=== PATIENT | male | born 1940 | race Caucasian/White ===

== ENCOUNTER 2022-12-04 09:15 | Outpatient (CLI) | payer MEDICARE, SELFPAY ==
--- NOTE | 2022-12-06 14:33 | WPDSLEEPSTUD ---
Sleep Study Date of Study: 12/04/22 Ordering Provider: Ihsan Crowe MD Interpreting Physician: Tasia Gloria MD Sleep Study Type: CPAP Titration Height: 1.88 m Weight: 119.295 kg Body Mass Index: 33.7 Neck Circumference (inches): 16.75 [place]: 2 Reason for Sleep Study obstructive sleep apnea, currently on APAP, elevated apnea-hypopnea index 15.5; he presents for a new titration Sleep History Jh Husain is a 82-year-old man with history of obstructive sleep apnea diagnosed in 2007 on CPAP who presents for a titration due to a high residual number of events despite using APAP 12-20 cm water pressure. His residual AHI is 15.5. He frequently awakens from sleep short of breath. He rarely wakes during the night with heartburn, belching or cough.??He frequently snores, occasionally snores loudly enough that others complain. He occasionally has trouble sleeping when he has a cold. He rarely wakes up gasping for breath during the night. He rarely has breathing problems at night. He never sweats excessively at night. He rarely notices his heart pounding or beating irregularly during the night. He frequently falls asleep during the day. He occasionally falls asleep involuntarily and never falls asleep while driving. He never experiences loss of muscle tone with strong emotion. He never feels paralyzed on waking or falling asleep. He never experiences vivid dreams upon waking or falling asleep. He never feels afraid of going to sleep. He rarely has nightmares. He rarely recalls his dreams. He rarely has thoughts racing through his mind. He rarely feels sad or depressed. He occasionally feels anxiety or worry about things. He occasionally notices parts of his body jerk. He occasionally kicks during the night. He rarely feels crawling or aching feelings in his legs. He rarely feels leg pain at night. He never grinds his teeth and never has morning jaw pain. He occasionally feels bothered by pain during the day and is rarely awakened by pain during the night. He occasionally wakes up feeling stiff, sore, and achy in the morning, rarely wakes with pain in his neck, spine, or joints. Normal bedtime is around 10:00 p.m. usually falling asleep sometime sooner than other times. He typically gets about 8+ hours of sleep per night. His wake up time is 8:30 a.m.. He has the same schedule on weekends. He typically wakes twice during the night to go to the bathroom. Habits:??Tobacco: former smoker Caffeine:unknown. Alcohol:currently uses PMH: hypertension, hypothyroidism, coronary artery disease status post CABG, AAA status post endovascular stent x2 in 2019, atrial fibrillation, [facility] Past Medical History Medical History (Updated 12/06/22 @ 15:28 by Tasia Gloria MD) Atrial fibrillation Essential hypertension Hypothyroidism (acquired) 04/30/2021 Obstructive sleep apnea Family History Family History Unknown Heart disease Hypertension Kidney disorder Sibling Dementia Social History Social History (Updated 11/27/22 @ 15:13 by Kathy Benoit MA) Smoking status: Former smoker Tobacco type: cigarettes Smoking end date: 11/04/73 Alcohol intake: current Medications Home Medications Medication Instructions Recorded Confirmed Type atorvastatin 80 mg tablet 80 mg PO DAILY 10/17/22 11/27/22 History calcitriol 0.25 mcg capsule 0.25 mcg PO 3XW 10/17/22 11/27/22 History carvedilol 12.5 mg tablet 12.5 mg PO Q12H 10/17/22 11/27/22 History chlorthalidone 25 mg tablet 25 mg PO DAILY 10/17/22 11/27/22 History citalopram 20 mg tablet 20 mg PO DAILY 10/17/22 11/27/22 History lorazepam 0.5 mg tablet 0.5 mg PO TID PRN 10/17/22 11/27/22 History losartan 50 mg tablet 50 mg PO BID 10/17/22 11/27/22 History nitroglycerin 0.4 mg sublingual 0.4 mg sublingual Q5M PRN 10/17/22 11/27/22 History tablet warfarin 2.5 mg tablet 2.5 mg PO 4XW 10/17/22 0
[2022-12-06 15:29] VITALS: BMI 33.7
== END 2022-12-05 07:55 | disposition home or self-care (01) ==
LOC: ANHCSM 09:16
PROVIDERS: PCP Internal Medicine; Visit Provider Internal Medicine Pulmonary Disease
DX: G47.33 Obstructive sleep apnea (adult) (pediatric) (principal); I49.3 Ventricular premature depolarization
CPT/HCPCS: 95811

== ENCOUNTER 2023-01-22 09:52 | Outpatient (CLI) | payer MEDICARE, SELFPAY ==
[2023-01-22 10:30] VITALS: PULSE 61; O2SAT 94
[2023-01-22 10:35] VITALS: PULSE 87; O2SAT 88
[2023-01-22 10:40] VITALS: PULSE 87; O2SAT 91
[2023-01-22 10:50] VITALS: PULSE 68; O2SAT 94
--- NOTE | 2023-01-22 11:45 | HOMEO2EVAL ---
Evaluation was performed at [facility] Home Oxygen Evaluation RC: Home Oxygen (O2) Evaluation Start: 01/22/23 11:42 Freq: Status: Active Protocol: RPE Activity Type Activity Date Activity User E-sign Co-sign Detail Recorded Client Recorded Date Recorded By Document 01/22/23 10:30 PK RT_012 01/22/23 11:45 PK Document 01/22/23 10:35 PK RT_012 01/22/23 11:45 PK Document 01/22/23 10:40 [facility] [id number] 01/22/23 11:45 [facility] Document 01/22/23 10:50 [facility] [id number] 01/22/23 11:45 [facility] 01/22/23 01/22/23 01/22/23 10:30 10:35 10:40 Home O2 Evaluation [Oxygen] -Test Phase Resting Exercise Exercise -Oxygen Delivery Room Air Room Air Nasal Cannula -Oxygen Flow Rate (L/min) 1 [Pulse Oximetry] -Pulse Oximetry (90-100 %) 94 88 L 91 [Pulse Rate] -Pulse Rate (60-100 beats/min) 61 87 87 [Charges] -Treatment Charges O2 Evaluation - Outpatient 01/22/23 10:50 Home O2 Evaluation [Oxygen] -Test Phase Resting -Oxygen Delivery Room Air -Oxygen Flow Rate (L/min) [Pulse Oximetry] -Pulse Oximetry (90-100 %) 94 [Pulse Rate] -Pulse Rate (60-100 beats/min) 68 [Charges] -Treatment Charges
--- NOTE | 2023-01-22 13:48 | WPDPFTINT ---
PFT Procedure Performed PFT Procedure Performed Spirometry with Pre/Post Bronchodilator Plethysmography (Lung Vol) Diffusing Cap (DLCO) Flow Vol Loop PFT Interpretation This is a pulmonary function test with pre and post-bronchodilator spirometry, plethysmography and diffusing capacity. The test was performed and results interpreted in accordance with the 2019 and 2005 ATS/ERS Task Force guidelines respectively using the Global Lung Function Initiative-2012 reference equations. Patient demonstrated good effort and cooperation. Reproducibility criteria were met. The quality of the pre bronchodilator spirometry maneuver was Grade A and post bronchodilator spirometry maneuver was Grade A. Findings: Spirometry: The contour the inspiratory and expiratory flow tracing are normal. The pre bronchodilator FVC is 2.83 L, 66% predicted. The pre bronchodilator FEV1 is 2.30 L, 74% predicted. The pre bronchodilator FEV1: FVC ratio is 81%. The post bronchodilator FVC is 2.73 L, representing a 3% decrease. The post bronchodilator FEV1 is 2.36 L, representing a 3% increase. The post bronchodilator FEV1: FVC ratio was 86%. Plethysmography: The total lung capacity is 5.46 L, 69% predicted. The functional residual capacity is 2.99 L, 69% predicted. The residual volume is 2.44 L, 83% predicted. Diffusing capacity: The diffusing capacity unadjusted for hemoglobin and carboxyhemoglobin is 11.8, 48% predicted. The diffusing capacity adjusted for alveolar volume is 2.66, 81% predicted. Impression: There is a mild restrictive ventilatory abnormality with a normal FEV1. The spirometry is normal without evidence of an obstructive abnormality. There is no significant improvement after inhaling a single dose of albuterol. The diffusing capacity unadjusted for hemoglobin and carboxyhemoglobin is moderately decreased and normalizes when adjusted for alveolar volume. There are no prior studies for comparison
== END 2023-01-22 09:53 | disposition home or self-care (01) ==
LOC: ANHIMG 09:53
PROVIDERS: PCP Internal Medicine; Visit Provider Internal Medicine Pulmonary Disease
DX: R06.00 Dyspnea, unspecified (principal); R06.09 Other forms of dyspnea; R94.2 Abnormal results of pulmonary function studies
CPT/HCPCS: 94060; 94618; 94726; 94729

== ENCOUNTER 2023-01-28 12:18 | Outpatient (CLI) | payer MEDICARE, SELFPAY ==
[2023-01-28 13:40] LABS: Rheumatoid Factor < 12.0 IU/ML (<12)
[2023-01-28 13:47] LABS: CRP 1.5 mg/dL (<1.0); Creatine Kinase 29 U/L (55-170)
[2023-01-28 13:48] LABS: Erythrocyte Sedimentation Rate 21 mm/hr (0-20)
[2023-01-31 19:19] LABS: ANA Cascade Screen Negative (Negative)
[2023-01-31 22:01] LABS: Anti Cyclic Citrullinated Pept <16 Units (<20)
[2023-02-02 11:56] LABS: ANCA Screen Negative (Negative)
[2023-02-03 06:41] LABS: Aldolase 3.6 U/L (<=8.1)
== END 2023-01-28 12:19 | disposition home or self-care (01) ==
PROVIDERS: PCP Internal Medicine; Visit Provider Internal Medicine Pulmonary Disease
DX: R91.1 Solitary pulmonary nodule (principal); J98.4 Other disorders of lung
CPT/HCPCS: 36415; 82085; 82550; 85652; 86036; 86038; 86140; 86200; 86331; 86430; 86606; 86609

== ENCOUNTER 2023-02-26 16:02 | Outpatient (CLI) | payer MEDICARE, SELFPAY ==
[2023-02-26 18:05] LABS: Free T4 Free Thyroxine 1.21 ng/mL (0.78-2.19)
== END 2023-02-26 16:03 | disposition home or self-care (01) ==
PROVIDERS: PCP Internal Medicine; Visit Provider Internal Medicine Pulmonary Disease
DX: R06.09 Other forms of dyspnea (principal); G47.10 Hypersomnia, unspecified
CPT/HCPCS: 36415; 84439; 84443

== ENCOUNTER 2023-06-21 14:09 | Emergency (ER) | payer MEDICARE, SELFPAY ==
[2023-06-21 14:12] VITALS: O2SAT 74
--- NOTE | 2023-06-21 14:17 | ED.GENADULT ---
HPI - General Adult General Chief complaint: Upper Respiratory Infection Stated complaint: Sinus Infection symptoms Source: patient, RN notes reviewed and old records reviewed Mode of arrival: ambulatory Limitations: no limitations History of Present Illness HPI narrative: a 2-year-old male presents to [facility] with complaints of sinus congestion, cough for the last 3 days. Then today became extremely short of breath and weak. patient wears O2 at home at 2 L which he is wearing now is stills extremely short of breath. Related Data Home Medications Medication Instructions Recorded Confirmed atorvastatin 80 mg tablet 80 mg PO DAILY 10/17/22 06/21/23 calcitriol 0.25 mcg capsule 0.25 mcg PO 3XW 10/17/22 06/21/23 carvedilol 12.5 mg tablet 12.5 mg PO Q12H 10/17/22 06/21/23 chlorthalidone 25 mg tablet 25 mg PO DAILY 10/17/22 06/21/23 citalopram 20 mg tablet 20 mg PO DAILY 10/17/22 06/21/23 lorazepam 0.5 mg tablet 0.5 mg PO TID PRN Anxiety 10/17/22 06/21/23 losartan 50 mg tablet 50 mg PO BID 10/17/22 06/21/23 nitroglycerin 0.4 mg sublingual 0.4 mg sublingual Q5M PRN Chest 10/17/22 06/21/23 tablet Pain warfarin 2.5 mg tablet 2.5 mg PO 4XW 10/17/22 06/21/23 warfarin 5 mg tablet 5 mg PO QMWF 10/17/22 06/21/23 levothyroxine 50 mcg capsule 50 mcg PO DAILY 11/27/22 06/21/23 Allergies Allergy/AdvReac Type Severity Reaction Status Date / Time KEIKO Inhibitors AdvReac Severe Cough Unverified 06/21/23 14:17 Penicillins AdvReac Unknown Rash Verified 06/21/23 14:17 Review of Systems Constitutional: Constitutional: Reports no additional constitutional complaints, Denies body ache(s), Denies chills, Reports fatigue, Denies fever(s), Denies headache(s), Reports malaise and Reports weakness Eyes: Eyes: Reports no additional eye complaints and Denies blurry vision ENT: Reports system reviewed and no additional complaints, except as documented, Denies vertigo, Denies dizziness, Denies ear discharge, Denies otalgia, Denies facial pain, Denies headache(s), Reports nasal congestion, Reports nasal discharge, Denies sinus pain, Reports sinus pressure and Denies sore throat Cardiovascular: Cardiovascular: Reports no additional cardiovascular complaints, Denies chest pain, Denies chest pain at rest, Denies rapid heart rate and Reports dyspnea Respiratory: Respiratory: Reports no additional respiratory complaints, Denies chest congestion, Reports cough, Denies pain on inspiration, Denies pain with cough, Reports dyspnea, Reports dyspnea on exertion and Reports wheezing Gastrointestinal: Gastrointestinal: Denies abdominal pain, Denies diarrhea, Denies nausea and Denies vomiting Integumentary/Breasts: Skin/Breast: Denies rash Neurologic: Reports system reviewed and no additional complaints, except as documented, Denies vertigo, Denies dizziness and Denies headache(s) Endocrine: Endocrine: Denies fatigue PMFSH Past Medical History Medical History Atrial fibrillation Basal cell carcinoma (BCC) of left side of nose Essential hypertension Hypothyroidism (acquired) 04/30/2021 Obstructive sleep apnea Family History Family History Unknown Heart disease Hypertension Kidney disorder Sibling Dementia Social History Social History Smoking status: Former smoker Tobacco type: cigarettes Smoking end date: 11/04/73 Alcohol intake: current Comments At the time of my signature, I reviewed and agree with the nursing past medical, surgical, social, and family history. There is no relevant family history pertinent to the patient complaint. Exam Const: General: cooperative, alert, awake, acute distress respiratory, in distress respiratory, ill appearing chronically and well nourished Nutritional Appearance: well nourished Orientation/consciousness: patient oriented x3 Limi
[2023-06-21 14:19] VITALS: BP 118/87; PULSE 68; RESP 24; TEMP 36.8; O2SAT 94
[2023-06-21 14:30] VITALS: BP 120/78; PULSE 68; RESP 26; O2SAT 99
== END 2023-06-21 14:30 | disposition short-term general hospital (02) ==
PROVIDERS: Emergency Provider Registered Nurse; PCP Internal Medicine
DX: R06.09 Other forms of dyspnea (principal); R06.02 Shortness of breath; R09.02 Hypoxemia; Z99.81 Dependence on supplemental oxygen; Z87.891 Personal history of nicotine dependence; I48.91 Unspecified atrial fibrillation; Z85.828 Personal history of other malignant neoplasm of skin; I10 Essential (primary) hypertension; E03.9 Hypothyroidism, unspecified
CPT/HCPCS: 99215; G0463

== ENCOUNTER 2023-06-21 15:15 | Inpatient (IN) | payer MEDICARE, SELFPAY ==
[2023-06-21] VITALS (23 sets, daily range): BP systolic 108–208; BP diastolic 71–112; PULSE 68–92; RESP 16–96; TEMP 36.6; O2SAT 2–99
--- NOTE | ~2023-06-21 | XR_ITS ---
EXAMINATION: XR chest 1V portable Exam Date/Time: 06/21/2023 16:15 TREE PRUNER HISTORY: campos Comparison: None. RESULT: Lines, tubes, and devices: Intact sternotomy wires. Mediastinal vascular clips. Aortic endograft. Lungs and pleura: Diffuse reticular opacities. Left medial and basilar opacities. Cardiomediastinal silhouette: Enlarged heart. Possible hiatal hernia. Other: No acute osseous or upper abdominal finding. IMPRESSION: Left medial and basilar atelectasis/consolidation. Mild interstitial edema. Cardiomegaly. Reviewed, dictated and finalized at location K. PRUNER IMPRESSION: Left medial and basilar atelectasis/consolidation. Mild interstitial edema. Car diomegaly.
--- NOTE | ~2023-06-21 | CT_ITS ---
EXAMINATION: CT chest abdomen wo con DATE: 06/23/2023 16:06 INDICATION: Shortness of breath. TECHNIQUE: Computed tomography (CT) of the chest and abdomen was performed without intravenous contra st. Automated exposure control and iterative reconstruction technique were employed. The dose-length product was 1317.81 mGy-cm. COMPARISON: Chest single view 06/21/2023 FINDINGS: CHEST CT: There is diffuse septal thickening in the lungs with a peripheral and lower lung predominance associa annie with mild groundglass opacities. No bronchiectasis or honeycombing. 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 Calcified left hilar lymph nodes are consistent with old granulomatous d isease. No pleural effusion. Cardiomegaly is noted. There are coronary artery calcifications. No rebecca cardial effusion. There are changes of coronary artery bypass grafting. The central pulmonary arterie s are enlarged, consistent with pulmonary arterial hypertension. There is mild thoracic spondylosis. ABDOMEN CT: The liver is normal. There are gallstones in the gallbladder, which is normal in size. The spleen, pa ncreas, adrenal glands are normal. There is mild atrophy of right kidney. Left kidney is normal. 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 There are stents in the renal arteries. There are no dilated loops of bowel. The a ppendix is normal. There are no pathologically enlarged lymph nodes. There is no free intraperitoneal fluid. There is mild lumbar spondylosis. IMPRESSION: 1. Chronic interstitial lung disease in a pattern of usual interstitial pneumonia (UIP) versus nonspe cific interstitial pneumonia (NSIP). 2. 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 3. 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 Reviewed, dictated and finalized at location E. RY PICKER OPERATOR IMPRESSION: 1. Chronic interstitial lung disease in a pattern of usual interstitial pneumon ia (UIP) versus nonspecific interstitial pneumonia (NSIP). 2. 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 3. 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
[2023-06-21 15:38] LABS: Hematocrit 38.6 % (42.0-52.0); Hemoglobin 11.6 g/dL (14.0-18.0); Mean Corpuscular HGB Conc 30.1 g/dl (32-36); Mean Corpuscular Hemoglobin 30.4 pg (26-34); Mean Corpuscular Volume 101.3 fl (80-100); Platelet Count Result 140 k/mm3 (150-375); Red Blood Count 3.81 M/mm3 (4.6-6.20); Red Cell Distribution Width 15.8 % (11.5-14.5); White Blood Count 7.6 K/mm3 (4.5-10.0)
[2023-06-21] MEDS: IPRATROPIUM BR 0.02% INH SOLN 0.5 MG/2.5 ML VIAL 1 MG INHALATION (15:38)
[2023-06-21] MEDS: ALBUTEROL SULFATE NEB 2.5 MG/3 ML INH 15 MG INHALATION (15:38)
[2023-06-21] MEDS: predniSONE 20 MG TABLET 40 MG PO (15:43)
[2023-06-21 15:50] LABS: Alanine Aminotransferase 13 U/L (6-50); Albumin Level 4.2 g/dL (3.5-5.1); Alkaline Phosphatase 96 U/L (38-126); Anion Gap 9 mmol/L (8-16); Aspartate Amino Transferase 21 U/L (17-59); Bilirubin,Total 1.1 mg/dL (0.2-1.3); Blood Urea Nitrogen 29 mg/dL (9-20); Calcium 9.1 mg/dL (8.4-10.2); Carbon Dioxide 28 mmol/L (22-30); Chloride 102 mmol/L (98-107); Estimated CRCL calculation 41 ml/min; Estimated Glomerular Filt Rate 45; Glucose 111 mg/dL (65-110); Potassium 4.6 mmol/L (3.4-5.0); Sodium 139 mmol/L (137-145)
[2023-06-21 15:56] LABS: Band Neutrophils Percent 2 % (0-6); Eosinophils Absolute Manual 0.15 K/mm3 (0.02-0.5); Eosinophils Percent Manual 2 % (0-4); Monocytes Absolute Manual 0.76 K/mm3 (0.1-0.90); Monocytes Percent Manual 10 % (3-9); Neutrophils Absolute Manual 6.38 K/mm3 (1.3-6.7); Neutrophils Percent Manual 82 % (46-73); Total Cells Counted 100
[2023-06-21 15:57] LABS: Schistocytes None Seen (NORMAL)
[2023-06-21 15:58] LABS: Anisocytosis 1+ (NORMAL); Hypochromasia 1+ (NORMAL)
[2023-06-21 16:04] LABS: Alveolar/Arterial O2 Gradient 83.5 mmHg; Base Excess ABG -0.9 mEq/l (+/-2.0); Fractional Inspired Oxygen 28 %; HCO3 ABG 23.4 mEq/l (22.0-26.0); Oxygen Content ABG 15.9 %vol (16.0-22.0); Oxygen Saturation ABG 94.8 % (95.0-100.0); Oxyhemoglobin 92.5 % THb (90.0-100.0); PCO2 ABG 37.3 mmHg (35.0-45.0); PO2 ABG 72.1 mmHg (80.0-100.0); PO2 FiO2 Ratio Arterial Blood 2.58 %; Total Hemoglobin 12.2 g/dL (12.0-18.0); pH ABG 7.415 (7.350-7.450)
[2023-06-21 16:05] LABS: Device NASAL CANNULA; Modified Allen's Test Pass; Site Drawn RIGHT RADIAL
[2023-06-21 16:21] LABS: NT Pro B Type Natriuretic Pept 4000 pg/mL (19.9-100); Troponin I 0.036 ng/mL (0.000-0.034)
--- NOTE | 2023-06-21 16:51 | ED.SOB ---
HPI - SOB/Dyspnea General Chief Complaint: Shortness of Breath/Dyspnea Stated Complaint: dyspnea Time Seen by Provider: 06/21/23 15:19 History of Present Illness HPI Narrative: Patient reports increased difficulty breathing over the last week, worse with increased distances. He does have a history of hypertension for which he takes blood pressure medications, he does have atrial fibrillation for which she takes a blood thinner. He has been taking his medications as prescribed. Does have a slight cough. Related Data Home Medications Medication Instructions Recorded Confirmed atorvastatin 80 mg tablet 80 mg PO DAILY 10/17/22 06/21/23 calcitriol 0.25 mcg capsule 0.25 mcg PO 3XW 10/17/22 06/21/23 carvedilol 12.5 mg tablet 12.5 mg PO Q12H 10/17/22 06/21/23 chlorthalidone 25 mg tablet 25 mg PO DAILY 10/17/22 06/21/23 citalopram 20 mg tablet 20 mg PO DAILY 10/17/22 06/21/23 lorazepam 0.5 mg tablet 0.5 mg PO TID PRN Anxiety 10/17/22 06/21/23 losartan 50 mg tablet 50 mg PO BID 10/17/22 06/21/23 nitroglycerin 0.4 mg sublingual 0.4 mg sublingual Q5M PRN Chest 10/17/22 06/21/23 tablet Pain warfarin 2.5 mg tablet 2.5 mg PO 4XW 10/17/22 06/21/23 warfarin 5 mg tablet 5 mg PO QMWF 10/17/22 06/21/23 levothyroxine 50 mcg capsule 50 mcg PO DAILY 11/27/22 06/21/23 Allergies Allergy/AdvReac Type Severity Reaction Status Date / Time KEIKO Inhibitors AdvReac Severe Cough Verified 06/21/23 17:51 Penicillins AdvReac Unknown Rash Verified 06/21/23 17:51 Review of Systems Review of Systems: CONST: No fever. HEENT: No sore throat C/V: No chest pain RESP: slight cough, difficulty breathing worse with exertion GI: No abdominal pain : No dysuria. M/S: No joint pain. SKIN: No rash. NEURO: [No headache or focal numbness or weakness] PSYCH: [No depression] [facility] Past Medical History Medical History Atrial fibrillation Basal cell carcinoma (BCC) of left side of nose Essential hypertension Hypothyroidism (acquired) 04/30/2021 Obstructive sleep apnea Family History Family History Unknown Heart disease Hypertension Kidney disorder Sibling Dementia Social History Social History Smoking status: Former smoker Tobacco type: cigarettes Smoking end date: 11/04/73 Alcohol intake: current Exam Narrative: EXAMINATION OF ORGAN SYSTEMS/BODY AREAS: Constitutional: Vital signs per nursing GENERAL:[No acute distress, non-toxic appearing.] HEAD: Normal with no signs of head trauma. EYES: EOMI, conjunctiva normal ENT: Hearing grossly intact LUNGS: slightly increased respiratory effort with coarse lung sounds HEART: [Regular rate and rhythm] ABD: [Soft], [nontender to palpation] EXT: Normal range of motion SKIN: [No rashes or lesions.] NEURO: [Alert and oriented x 3. No gross focal sensory or strength deficits.] PSYCH: Normal affect Course Vital Signs Vital signs: Vital Signs Temperature 97.8 F 06/21/23 15:15 Pulse Rate 76 06/21/23 15:15 Respiratory Rate 96 H 06/21/23 15:15 Blood Pressure 208/103 H 06/21/23 15:15 Pulse Oximetry 2 L 06/21/23 15:15 Oxygen Delivery Nasal Cannula 06/21/23 15:15 Oxygen Flow Rate 2 06/21/23 15:15 Temperature 97.8 F 06/21/23 15:15 Pulse Rate 71 06/21/23 18:01 Respiratory Rate 20 06/21/23 18:01 Blood Pressure 179/96 H 06/21/23 18:01 Pulse Oximetry 95 06/21/23 18:11 Oxygen Delivery Nasal Cannula 06/21/23 18:11 Oxygen Flow Rate 2 06/21/23 18:11 MDM - SOB/Dyspnea MDM Narrative Medical decision making narrative: 82F presenting to the emergency department with chest tightness, dyspnea, orthopnea, presentation and history of CHF, consistent with most likely CHF exacerbation vs ACS/CO, COPD exacerbation, pneumonia, PE. IV is established and cardiac workup is
[2023-06-21] MEDS: FUROSEMIDE INJ 40 MG/4 ML VIAL IV PUSH (17:52)
--- NOTE | 2023-06-21 18:54 | PM.IMHP ---
H&P: HPI History of Present Illness Date/Time: 06/21/23 18:54 Chief Complaint: SOB Narrative: 82 y/o M presents here with SOB with PMH of interstitial lung disease, persistent atrial fibrillation, basal cell carcinoma (L nose s/p excision), HTN, hypothyroidism, ARELI, CABGx3, prostate cancer s/p prostatectomy, lymphoma s/p chemo, pericarditis, and AAA x2 with stent and a graft. Reports sinus congestion, sneezing, and experiencing a productive cough for the past week. Has been slowly increasing in severity and increasing SOB. Has mild intermittent SOB at baseline secondary to ILD. 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 Did not trial his home inhalers before seeking treatment. Chest pain, palpitations, or abdominal pain. No N/V/D. No increased swelling to his legs or abdomen. No fever, chills, or body aches. ED workup showed mild anemia at 11.6 (no previous hx), no leukocytosis, neutrophils modestly elevated, creatinine 1.5, troponin 0.036, BNP 4000. CXR showed left medial and bibasilar atelectasis/consolidation. Mild interstitial edema. Cardiomegaly. Subsequently found to be RSV+. Review of Systems Review of Systems: All systems reviewed & are unremarkable except as noted in HPI and below PMFSH Past Medical History Medical History AAA (abdominal aortic aneurysm) s/p stent and graft Atrial fibrillation Basal cell carcinoma (BCC) of left side of nose Essential hypertension Hypothyroidism (acquired) 04/30/2021 ILD (interstitial lung disease) Lymphoma s/p chemo Obstructive sleep apnea Pericarditis Prostate cancer s/p prostatectomy Surgical History Surgical History History of aortic aneurysm repair stent x1 then graft x1 History of coronary artery bypass graft x 3 History of excision of lesion BCC of L nose History of prostatectomy Family History Family History (Updated 06/21/23 @ 20:55 by Wendy Aguirre RN) Unknown Kidney disorder Heart disease Hypertension Sibling No problems noted. Mother Myocardial infarction Social History Social History Smoking packs per day: 1.5 Smoking cigarettes per day: 30.0 Years smoked: 15 Smoking pack-years: 22.50 Smoking status: Former smoker Tobacco type: cigarettes and pipe Alcohol intake: current Drinks per week: 1 Alcohol use details: Drinks alcohol, approximately 1-2 glasses of wine daily. Substance use: never Do You Feel Safe in your Home?: Yes Lack of Transportation: No Lack of Food: Never True Current Housing: I Have Housing Concerned About Future Housing: No Difficulty Paying Gas/Electric Bills: No Difficulty Paying for Meds: No Currently Unemployed: No Education: High School Diploma/GED Difficulty w/ Childcare or Family Care: No Spiritual care concerns: No Meds Home Medications and Allergies Home Medications Medication Instructions Recorded Confirmed Type atorvastatin 80 mg tablet 80 mg PO QPM 10/17/22 06/21/23 History calcitriol 0.25 mcg capsule 0.25 mcg PO 3XW 10/17/22 06/21/23 History carvedilol 12.5 mg tablet 12.5 mg PO Q12H 10/17/22 06/21/23 History citalopram 20 mg tablet 20 mg PO QHS 10/17/22 06/21/23 History lorazepam 0.5 mg tablet 0.5 mg PO DAILY PRN Anxiety 10/17/22 06/21/23 History losartan 50 mg tablet 50 mg PO BID 10/17/22 06/21/23 History warfarin 2.5 mg tablet 2.5 mg PO 5XW 10/17/22 06/21/23 History warfarin 5 mg tablet 5 mg PO 2XW 10/17/22 06/21/23 History levothyroxine 50 mcg capsule 50 mcg PO DAILY 11/27/22 06/21/23 History acetaminophen 500 mg capsule 500 mg PO QPM PRN Sleep 06/21/23 06/21/23 History aspirin 81 mg capsule 81 mg PO QPM 06/21/23 06/21/23 History furose
--- NOTE | 2023-06-21 19:40 | ECG_ITS ---
Measurements Intervals [place] Rate: 75 P: ID: 0 QRS: -49 QRSD: 146 T: 12 QT: 414 QTc: 465 Interpretive Statements ATRIAL FIBRILLATION RIGHT BUNDLE BRANCH BLOCK LEFT ANTERIOR FASCICULAR BLOCK BASELINE ARTIFACT- I, II, III, AVR, AVF, V1, V3-V6 ABNORMAL ECG NO PREVIOUS ECG AVAILABLE FOR COMPARISON Electronically Signed On 06-22-2023 7:09:07 ATHLETICS DIRECTOR by Vern Silverio D.O.
[2023-06-21 20:06] LABS: Iron 45 ug/dL (49-181)
[2023-06-21 20:16] LABS: Influenza A QL RT-PCR Negative (Negative); Influenza B QL RT-PCR Negative (Negative); RSV RNA, RT-PCR Positive (Negative); SARS-CoV-2 RNA PCR Negative (Negative)
[2023-06-21 20:16] LABS: Percent Iron Saturation 15 % (20-50)
--- NOTE | 2023-06-21 20:30 | ADMGEN ---
This patient, Jh Husain, was admitted to Medical Room 247-. Patient/family oriented to hospital policies and general routines including ID bracelet, bed and alarms, visiting hours, pain management, procedures, bathroom and other care routines, personal items, smoking policy, room service/diet, and visiting hours. Information on how to activate the Rapid Response Team has been discussed. Patient/Family are encouraged to report perceived risks to care and to ask questions if they do not understand what they are told or what they should do.
[2023-06-21 20:34] LABS: Lactic Acid Reflex 1.3 mmol/L (0.7-2.0)
[2023-06-21 20:46] LABS: Troponin I 0.034 ng/mL (0.000-0.034)
[2023-06-21 20:58] LABS: Procalcitonin 0.1 ng/mL
[2023-06-21 21:15] LABS: Folic Acid 6.4 ng/mL (2.76->20)
[2023-06-21] MEDS: ATORVASTATIN 40 MG TABLET 80 MG PO (23:00)
[2023-06-21] MEDS: carvediloL 12.5 MG TABLET PO (23:00)
[2023-06-21] MEDS: LOSARTAN POTASSIUM 50 MG TABLET PO (23:00)
[2023-06-21] MEDS: ASPIRIN 81 MG ENTERIC TABLET PO (23:00)
[2023-06-21] MEDS: CITALOPRAM HYDROBROMIDE 20 MG TABLET PO (23:00)
[2023-06-22] VITALS (26 sets, daily range): BP systolic 110–165; BP diastolic 63–89; PULSE 62–95; RESP 18–200; TEMP 36.4–36.9; O2SAT 90–99; BMI 31.8
[2023-06-22 00:17] LABS: INR 2.2; Prothrombin Time 26.4 Seconds (11.1-14.7)
[2023-06-22] MEDS: AZITHROMYCIN 500 MG/NS 250 ML 500 MG/250 ML BAG 250 MG IVPB (01:23)
[2023-06-22] MEDS: LEVOTHYROXINE SODIUM 50 MCG TABLET PO (05:09)
[2023-06-22 05:17] LABS: Basophils Percent Auto 0.5 % (0.2-1.2); Hematocrit 36.4 % (42.0-52.0); Hemoglobin 11.3 g/dL (14.0-18.0); Immature Granulocyte Absolute 0.03 K/mm3 (0.00-0.031); Immature Granulocyte Percent A 0.5 % (0-0.5); Lymphocytes Absolute Auto 0.38 K/mm3 (0.9-3.2); Lymphocytes Percent Auto 5.9 % (18.3-44.2); Mean Corpuscular Hemoglobin 30.8 pg (26-34); Mean Corpuscular Volume 99.2 fl (80-100); Mean Platelet Volume 9.8 fl (7.4-10.4); Monocytes Absolute Auto 0.6 K/mm3 (0.1-0.6); Monocytes Percent Auto 9.6 % (2.6-8.5); Neutrophils Absolute Auto 5.4 K/mm3 (1.3-6.7); Neutrophils Percent Auto 83.5 % (45.5-73.1); Platelet Count Result 136 k/mm3 (150-375); Red Blood Count 3.67 M/mm3 (4.6-6.20); Red Cell Distribution Width 15.4 % (11.5-14.5); White Blood Count 6.5 K/mm3 (4.5-10.0)
[2023-06-22 05:27] LABS: INR 2.3
[2023-06-22 05:32] LABS: Anion Gap 9 mmol/L (8-16); Blood Urea Nitrogen 31 mg/dL (9-20); Calcium 8.8 mg/dL (8.4-10.2); Carbon Dioxide 29 mmol/L (22-30); Chloride 102 mmol/L (98-107); Estimated CRCL calculation 44 ml/min; Estimated Glomerular Filt Rate 45; Glucose 143 mg/dL (65-110); Potassium 3.9 mmol/L (3.4-5.0); Sodium 140 mmol/L (137-145)
[2023-06-22] MEDS: FOLIC ACID 1 MG TABLET PO (08:42)
[2023-06-22] MEDS: predniSONE 20 MG TABLET 40 MG PO (08:42)
[2023-06-22] MEDS: LOSARTAN POTASSIUM 50 MG TABLET PO ×2 (08:42→20:43)
[2023-06-22] MEDS: THIAMINE HCL 100 MG TABLET PO (08:42)
[2023-06-22] MEDS: BENZONATATE 100 MG CAPSULE PO ×3 (08:43→17:18)
[2023-06-22] MEDS: carvediloL 12.5 MG TABLET PO ×2 (08:43→20:43)
[2023-06-22] MEDS: guaiFENesin 12 HR 600 MG TABCR PO ×2 (08:43→20:43)
[2023-06-22] MEDS: IPRATROPIUM 0.5 MG/ALBUTEROL SULFATE 2.5 MG AMPUL.NEB 3 ML INHALATION ×5 (09:13→23:27)
--- NOTE | 2023-06-22 13:46 | PM.IMPN ---
Progress Note: A&P Assessment and Plan (1) Hypoxia: Code(s): R09.02 - Hypoxemia Status: Acute Assessment and Plan: -presented with hypoxia with sat of 80% on 1L NC, which he wears intermittently with activity. -+RSV -CXR: left medial and basilar atelectasis/consolidation. Mild interstitial edema. Cardiomegaly. per my own personal interpretation of CXR, some concern for mediastinal widening. Does have history of AAA with repair. No current chest pain, midback pain, or abdominal pain. No hypotension. -BNP: 4,000. Echo ordered. Previous ECHO in 07/25 -continue home dose of Lasix 40 mg p.o. daily prn. - Monitor I&Os and daily weights -scheduled nebs Q4H -Supplemental O2, supportive measures for RSV. -Continue prednisone 40 mg for total of 7 doses. (2) Pneumonia: Qualifiers: Laterality: left Lung location: unspecified part of lung Pneumonia type: due to unspecified organism Qualified Code(s): J18.9 - Pneumonia, unspecified organism Code(s): J18.9 - Pneumonia, unspecified organism Status: Acute Assessment and Plan: -CXR: left medial and basilar atelectasis/consolidation. Mild interstitial edema. Cardiomegaly. -No leukocytosis or electrolyte derangements. -Reported chest and sinus congestion. -viral PCR: +RSV. -Continue Azithromycin and ceftriaxone -prednisone 40 mg daily for total of 7 doses -sputum culture pending (3) ILD (interstitial lung disease): Code(s): J84.9 - Interstitial pulmonary disease, unspecified Status: Chronic Assessment and Plan: -follows with pulmonology here at [place], last seen by Sebastien HILLMAN in 01/2023. -wears 1L NC intermittently with activity - now requiring 2L NC continuously. -last overnight oximetry showed some modest desaturations with lowest at 87%. Plan for CPAP 12 and 2L bleed in. -continue home CPAP at night. -continue nebulizers, add prednisone (4) RSV (acute bronchiolitis due to respiratory syncytial virus): Code(s): J21.0 - Acute bronchiolitis due to respiratory syncytial virus Status: Acute Assessment and Plan: -symptoms x1 week -continue supportive measures: Tylenol p.r.n., Mucinex p.r.n., Tessalon Perles p.r.n. (5) Hypothyroidism (acquired): Code(s): E03.9 - Hypothyroidism, unspecified Status: Chronic Assessment and Plan: TSH WNL this morning continue home Synthroid 50 mcg PO daily (6) Anemia: Qualifiers: Anemia type: unspecified type Qualified Code(s): D64.9 - Anemia, unspecified Code(s): D64.9 - Anemia, unspecified Status: Acute Assessment and Plan: -no previous for comparison. -hgb currently 11.3 -ETOH - 1-2 glasses of wine daily. adding thiamine and folic acid supplements. -vitamin B12, folic acid both WNL -thiamine pending -ferritin, iron, and TIBC panel: 111, 45, 292% respectively -monitor CBC (7) Essential hypertension: Code(s): I10 - Essential (primary) hypertension Status: Chronic Assessment and Plan: -continue home medications: Losartan and carvediol -chronic, monitor. Plan Home Meds/Chronic Conditions - HLD: continue home statin - insomnia: continue home eszopiclone - OTC/supplements: Continue calcitriol, asa, tyl PM - continue home Celexa, lorazepam Diet: Heart healthy GI Prophylaxis: DVT Prophylaxis: SCDs, continue home warfarin Lines: pIV Code Status: Full Code Subjective Date/time seen: 06/22/23 13:46 Interval history: Patient in no acute distress this am, although is tachypneic. He is on his baseline supplemental oxygen at 2L. He is coughing up phlegm, sputum culture pending. Will continue AB therapy for pneumonia until culture results although likely viral from RSV. Continue steroids. ECHO ordered. Will consult Dr. Crowe tomorrow as he sees him outpatient. Review of Systems Review of Systems: All systems reviewed & are unremarkabl
[2023-06-22] MEDS: WARFARIN (*PBKC) 2.5 MG TABLET PO (17:18)
[2023-06-22] MEDS: ATORVASTATIN 40 MG TABLET 80 MG PO (17:18)
[2023-06-22] MEDS: ASPIRIN 81 MG ENTERIC TABLET PO (17:18)
[2023-06-22] MEDS: CITALOPRAM HYDROBROMIDE 20 MG TABLET PO (20:43)
[2023-06-22] MEDS: diphenhydrAMINE HCl CAP 25 MG CAPSULE PO (23:59)
[2023-06-23] VITALS (23 sets, daily range): BP systolic 148–167; BP diastolic 90–98; PULSE 50–87; RESP 18–34; TEMP 36.5–37.1; O2SAT 92–99
[2023-06-23] MEDS: AZITHROMYCIN 500 MG/NS 250 ML 500 MG/250 ML BAG 250 MG IVPB
--- NOTE | 2023-06-23 | ECHO_ITS ---
Patient Info Name: Jh Husain Age: 82 years : 1940 Gender: Male Ht: 70 in Wt: 242 lbs BSA: 2.37 m2 HR: 50 bpm BP: 148 / 94 mmHg Heart Rhythm: Atrial Fibrillation, Right Bundle Branch Block Technical Quality: Fair Exam Date: 06/23/2023 12:52 PM Exam Location: Echo Lab Patient Status: Inpatient Admit Date: 06/21/2023 Staff Ordering Physician: Arlyn Ferguson APRN Goods Layer: Desiree Junior RDCS Attending Provider: Gerald Delong MD Referring Physician: Phyllis FALCON; Exam Type: CA echo dop color flow w con Study Info Indications - BNP elevated , c/f CHF Complete two-dimensional, color flow and Doppler transthoracic echocardiogram is performed with contrast to opacify the left ventricle and to improve the deliniation of the left ventricle endocardial borders. Contrast/Agitated Saline Contrast/Ag. Saline: Definity Amount: 2.00 ml Administered By: Desiree Junior RDCS Existing IV Access: Yes IV Access Condition: patent with no signs of infiltration Summary 1. Left ventricular chamber dimension is mildly enlarged. 2. There is mildly increased left ventricular wall thickness. 3. Left ventricular systolic function is normal, estimated at 60-65%. 4. Left ventricular septal wall motion is abnormal with septal motion related to bundle branch block. 5. There is hypokinesis of the basal and mid anterolateral wall. 6. Right ventricular systolic function is normal. 7. Left atrial chamber dimension is severely enlarged. 8. Right atrial chamber dimension is severely enlarged. 9. There is mild aortic valve stenosis. 10. There is mild tricuspid valve regurgitation. 11. Pulmonary hypertension. Estimated pulmonary arterial systolic pressure is 65 mmHg. 12. There is mild pulmonic regurgitation. Left Ventricle There is hypokinesis of the basal and mid anterolateral wall. Left ventricular chamber dimension is mildly enlarged. Left ventricular systolic function is normal, estimated at 60-65%. There is mildly increased left ventricular wall thickness. Left ventricular septal wall motion is abnormal with septal motion related to bundle branch block. Right Ventricle Right ventricular chamber dimension is normal. Right ventricular systolic function is normal. Left Atria Left atrial chamber dimension is severely enlarged. Right Atria Right atrial chamber dimension is severely enlarged. Atrial Septum Intact interatrial septum visualized by color flow imaging. Aortic Valve The aortic valve is trileaflet. There is mild aortic valve stenosis. There is no aortic valve regurgitation. There is mild aortic valve calcification. Pulmonic Valve The pulmonic valve is not well visualized. There is mild pulmonic regurgitation. Mitral Valve There is trace mitral valve regurgitation. Tricuspid Valve There is mild tricuspid valve regurgitation. Pulmonary hypertension. Estimated pulmonary arterial systolic pressure is 65 mmHg. Pericardium/Pleural There is no pericardial effusion. Inferior Vena Cava Dilated inferior vena cava with <50% collapse upon inspiration consistent with elevated right atrial pressure, 15 mmHg. Aorta The aortic root size at the sinus of Valsalva is normal. Left Ventricular Outflow Tract Name Value Normal LVOT 2D LVOT Diameter
[2023-06-23] MEDS: LEVOTHYROXINE SODIUM 50 MCG TABLET PO (05:04)
[2023-06-23 05:28] LABS: Basophils Percent Auto 0.3 % (0.2-1.2); Eosinophils Percent Auto 0.1 % (0-4.4); Hematocrit 36.1 % (42.0-52.0); Hemoglobin 10.9 g/dL (14.0-18.0); Immature Granulocyte Absolute 0.06 K/mm3 (0.00-0.031); Immature Granulocyte Percent A 0.7 % (0-0.5); Lymphocytes Absolute Auto 0.43 K/mm3 (0.9-3.2); Lymphocytes Percent Auto 4.8 % (18.3-44.2); Mean Corpuscular HGB Conc 30.2 g/dl (32-36); Mean Corpuscular Hemoglobin 30.2 pg (26-34); Mean Platelet Volume 10.3 fl (7.4-10.4); Monocytes Absolute Auto 1.1 K/mm3 (0.1-0.6); Monocytes Percent Auto 12.6 % (2.6-8.5); Neutrophils Absolute Auto 7.3 K/mm3 (1.3-6.7); Neutrophils Percent Auto 81.5 % (45.5-73.1); Platelet Count Result 161 k/mm3 (150-375); Red Blood Count 3.61 M/mm3 (4.6-6.20); Red Cell Distribution Width 15.6 % (11.5-14.5)
[2023-06-23 05:32] LABS: Anion Gap 8 mmol/L (8-16); Blood Urea Nitrogen 38 mg/dL (9-20); Calcium 8.6 mg/dL (8.4-10.2); Carbon Dioxide 30 mmol/L (22-30); Chloride 100 mmol/L (98-107); Estimated CRCL calculation 47 ml/min; Estimated Glomerular Filt Rate 48; Glucose 113 mg/dL (65-110); Potassium 4.1 mmol/L (3.4-5.0); Sodium 138 mmol/L (137-145)
[2023-06-23 05:33] LABS: INR 2.6; Prothrombin Time 29.9 Seconds (11.1-14.7)
[2023-06-23 07:26] LABS: Anisocytosis 1+ (NORMAL); Ovalocytes 1+ (NORMAL); Platelet Estimate Adequate (Adequate); Poikilocytosis 1+ (NORMAL); Schistocytes Rare (NORMAL)
[2023-06-23] MEDS: IPRATROPIUM 0.5 MG/ALBUTEROL SULFATE 2.5 MG AMPUL.NEB 3 ML INHALATION ×4 (08:05→20:20)
[2023-06-23] MEDS: predniSONE 20 MG TABLET 40 MG PO (08:54)
[2023-06-23] MEDS: BENZONATATE 100 MG CAPSULE PO ×3 (08:54→17:14)
[2023-06-23] MEDS: guaiFENesin 12 HR 600 MG TABCR PO ×2 (08:54→21:37)
[2023-06-23] MEDS: FOLIC ACID 1 MG TABLET PO (08:54)
[2023-06-23] MEDS: LOSARTAN POTASSIUM 50 MG TABLET PO ×2 (08:54→21:37)
[2023-06-23] MEDS: carvediloL 12.5 MG TABLET PO ×2 (08:55→21:37)
[2023-06-23] MEDS: THIAMINE HCL 100 MG TABLET PO (08:55)
[2023-06-23] MEDS: calcitrioL 0.25 MCG CAPSULE PO (08:57)
--- NOTE | 2023-06-23 12:28 | PM.IMPN ---
Progress Note: A&P Assessment and Plan (1) Hypoxia: Code(s): R09.02 - Hypoxemia Status: Acute Assessment and Plan: -presented with hypoxia with sat of 80% on 1L NC, which he wears intermittently with activity. -+RSV -CXR: left medial and basilar atelectasis/consolidation. Mild interstitial edema. Cardiomegaly. per my own personal interpretation of CXR, some concern for mediastinal widening. Does have history of AAA with repair. No current chest pain, midback pain, or abdominal pain. No hypotension. -BNP: 4,000. Echo ordered. Previous ECHO in 07/25 -continue home dose of Lasix 40 mg p.o. daily prn. -Monitor I&Os and daily weights -scheduled nebs Q4H -Supplemental O2, supportive measures for RSV. -Continue prednisone 40 mg for total of 7 doses. (2) Pneumonia: Qualifiers: Pneumonia type: due to unspecified organism Laterality: left Lung location: unspecified part of lung Qualified Code(s): J18.9 - Pneumonia, unspecified organism Code(s): J18.9 - Pneumonia, unspecified organism Status: Acute Assessment and Plan: -CXR: left medial and basilar atelectasis/consolidation. Mild interstitial edema. Cardiomegaly. -No leukocytosis or electrolyte derangements. -Reported chest and sinus congestion. -viral PCR: +RSV. -Continue Azithromycin and ceftriaxone -prednisone 40 mg daily for total of 7 doses -sputum culture negative (3) ILD (interstitial lung disease): Code(s): J84.9 - Interstitial pulmonary disease, unspecified Status: Chronic Assessment and Plan: -follows with pulmonology here at [facility], last seen by Sebastien HILLMAN in 01/2023. -wears 1L NC intermittently with activity - now requiring 2L NC continuously. -last overnight oximetry showed some modest desaturations with lowest at 87%. Plan for CPAP 12 and 2L bleed in. -continue home CPAP at night. -continue nebulizers and prednisone (4) RSV (acute bronchiolitis due to respiratory syncytial virus): Code(s): J21.0 - Acute bronchiolitis due to respiratory syncytial virus Status: Acute Assessment and Plan: -symptoms x1 week, positive on respiratory panel -continue supportive measures: Tylenol p.r.n., Mucinex p.r.n., Tessalon Perles p.r.n. (5) Hypothyroidism (acquired): Code(s): E03.9 - Hypothyroidism, unspecified Status: Chronic Assessment and Plan: TSH WNL continue home Synthroid 50 mcg PO daily (6) Anemia: Qualifiers: Anemia type: unspecified type Qualified Code(s): D64.9 - Anemia, unspecified Code(s): D64.9 - Anemia, unspecified Status: Acute Assessment and Plan: -no previous for comparison. -hgb currently 10.9 -ETOH - 1-2 glasses of wine daily. adding thiamine and folic acid supplements. -vitamin B12, folic acid both WNL -thiamine pending -ferritin, iron, and TIBC panel: 111, 45, 292% respectively -monitor CBC (7) Essential hypertension: Code(s): I10 - Essential (primary) hypertension Status: Chronic Assessment and Plan: -continue home medications: Losartan and carvediol -chronic, monitor. Plan Home Meds/Chronic Conditions - HLD: continue home statin - insomnia: continue home eszopiclone - OTC/supplements: Continue calcitriol, asa, tyl PM - continue home Celexa, lorazepam Diet: Heart healthy GI Prophylaxis: DVT Prophylaxis: SCDs, continue home warfarin Lines: pIV Code Status: Full Code Subjective Date/time seen: 06/23/23 12:28 Interval history: Patient in no acute distress this am, still coughing but his sputum culture was negative. He is on his baseline supplemental oxygen at 2L. Will continue AB therapy for pneumonia until culture results although likely viral from RSV. Continue steroids. ECHO ordered. Review of Systems Review of Systems: All systems reviewed & are unremarkable except as noted in HPI and below Exam Narrative: GENERAL
[2023-06-23] MEDS: PERFLUTREN LIPID MICROSPHERES 1.5 ML VIAL DILUTED TO 10 ML TOTAL VOLUME IV PUSH (13:25)
--- NOTE | 2023-06-23 14:42 | IVDEFINITY ---
Prior to administration of IV Definity the patient was educated on the risks and benefits of the imaging enhancing agent including potential adverse side effects. The patient verbalized understanding. Allergies were verified. No exclusion criteria were identified and at least one of the following inclusion criteria were met: 1) physician request, 2) patient technically difficult to image (per the [place] [employer] guidelines of two or more segments not discernable within the apical view), or 3) questionable left ventricular function. ?
[2023-06-23] MEDS: ATORVASTATIN 40 MG TABLET 80 MG PO (17:14)
[2023-06-23] MEDS: ASPIRIN 81 MG ENTERIC TABLET PO (17:14)
[2023-06-23] MEDS: BUDESONIDE RESPULE NEB 0.5 MG/2 ML AMP INHALATION (20:20)
[2023-06-23] MEDS: diphenhydrAMINE HCl CAP 25 MG CAPSULE PO (21:37)
[2023-06-23] MEDS: CITALOPRAM HYDROBROMIDE 20 MG TABLET PO (21:37)
[2023-06-24] VITALS (22 sets, daily range): BP systolic 137–166; BP diastolic 72–94; PULSE 53–90; RESP 14–22; TEMP 36–36.8; O2SAT 88–100
[2023-06-24] MEDS: AZITHROMYCIN 500 MG/NS 250 ML 500 MG/250 ML BAG 250 MG IVPB (00:06)
[2023-06-24] MEDS: IPRATROPIUM 0.5 MG/ALBUTEROL SULFATE 2.5 MG AMPUL.NEB 3 ML INHALATION ×5 (02:18→17:35)
[2023-06-24] MEDS: LEVOTHYROXINE SODIUM 50 MCG TABLET PO (05:08)
[2023-06-24 05:36] LABS: Basophils Percent Auto 0.2 % (0.2-1.2); Eosinophils Percent Auto 0.3 % (0-4.4); Hematocrit 35.9 % (42.0-52.0); Hemoglobin 10.8 g/dL (14.0-18.0); Immature Granulocyte Absolute 0.04 K/mm3 (0.00-0.031); Immature Granulocyte Percent A 0.5 % (0-0.5); Lymphocytes Absolute Auto 0.51 K/mm3 (0.9-3.2); Lymphocytes Percent Auto 5.9 % (18.3-44.2); Mean Corpuscular HGB Conc 30.1 g/dl (32-36); Mean Corpuscular Hemoglobin 30.6 pg (26-34); Mean Corpuscular Volume 101.7 fl (80-100); Monocytes Percent Auto 11.8 % (2.6-8.5); Neutrophils Percent Auto 81.3 % (45.5-73.1); Platelet Count Result 147 k/mm3 (150-375); Red Blood Count 3.53 M/mm3 (4.6-6.20); Red Cell Distribution Width 15.8 % (11.5-14.5); White Blood Count 8.7 K/mm3 (4.5-10.0)
[2023-06-24 05:50] LABS: Potassium 4.1 mmol/L (3.4-5.0)
[2023-06-24 05:53] LABS: INR 2.1; Prothrombin Time 24.6 Seconds (11.1-14.7)
[2023-06-24 05:55] LABS: Anion Gap 6 mmol/L (8-16); Blood Urea Nitrogen 39 mg/dL (9-20); Calcium 8.8 mg/dL (8.4-10.2); Carbon Dioxide 32 mmol/L (22-30); Chloride 102 mmol/L (98-107); Estimated CRCL calculation 45 ml/min; Estimated Glomerular Filt Rate 45; Glucose 99 mg/dL (65-110); Sodium 140 mmol/L (137-145)
[2023-06-24] MEDS: carvediloL 12.5 MG TABLET PO (08:59)
[2023-06-24] MEDS: guaiFENesin 12 HR 600 MG TABCR PO (09:01)
[2023-06-24] MEDS: FOLIC ACID 1 MG TABLET PO (09:01)
[2023-06-24] MEDS: THIAMINE HCL 100 MG TABLET PO (09:01)
[2023-06-24] MEDS: LOSARTAN POTASSIUM 50 MG TABLET PO (09:01)
[2023-06-24] MEDS: BENZONATATE 100 MG CAPSULE PO ×3 (09:01→16:43)
[2023-06-24] MEDS: BUDESONIDE RESPULE NEB 0.5 MG/2 ML AMP INHALATION (09:40)
--- NOTE | 2023-06-24 14:35 | PM.DS ---
DS: Admitting Diagnosis Discharge Date 06/24/23 Admitting Diagnosis SOB DS: Discharge Diagnosis Discharge Diagnosis (1) Hypoxia: Code(s): R09.02 - Hypoxemia Status: Resolved Assessment and Plan: -presented with hypoxia with sat of 80% on 1L NC, which he wears intermittently with activity. -+RSV -CXR: left medial and basilar atelectasis/consolidation. Mild interstitial edema. Cardiomegaly. per my own personal interpretation of CXR, some concern for mediastinal widening. Does have history of AAA with repair. No current chest pain, midback pain, or abdominal pain. No hypotension. -BNP: 4,000 on admission. Previous ECHO in 07/25. Repeat ECHO done 06/23/23 - appears unchanged and stable. -continue home dose of Lasix 40 mg p.o. daily prn. -Supplemental O2 - will have home O2 eval as patient has been using 2L at home, but requiring 1-2L here. (2) Pneumonia: Qualifiers: Pneumonia type: due to unspecified organism Laterality: left Lung location: unspecified part of lung Qualified Code(s): J18.9 - Pneumonia, unspecified organism Code(s): J18.9 - Pneumonia, unspecified organism Status: Acute Assessment and Plan: -CXR: left medial and basilar atelectasis/consolidation. Mild interstitial edema. Cardiomegaly. -viral PCR: +RSV. -Continue Azithromycin for total of 5 days -ceftriaxone d/c -d/c prednisone -sputum culture negative (3) ILD (interstitial lung disease): Code(s): J84.9 - Interstitial pulmonary disease, unspecified Status: Chronic Assessment and Plan: -follows with pulmonology here at [place], last seen by Sebastien HILLMAN in 01/2023. -home O2 eval to be completed prior to d/c -continue home CPAP at night. CPAP 12 and 2L bleed in. (4) RSV (acute bronchiolitis due to respiratory syncytial virus): Code(s): J21.0 - Acute bronchiolitis due to respiratory syncytial virus Status: Acute Assessment and Plan: -symptoms x1 week, positive on respiratory panel -continue supportive measures (5) Hypothyroidism (acquired): Code(s): E03.9 - Hypothyroidism, unspecified Status: Chronic Assessment and Plan: TSH WNL continue home Synthroid 50 mcg PO daily (6) Anemia: Qualifiers: Anemia type: unspecified type Qualified Code(s): D64.9 - Anemia, unspecified Code(s): D64.9 - Anemia, unspecified Status: Acute Assessment and Plan: -no previous for comparison. -hgb currently 10.8 -ETOH - 1-2 glasses of wine daily. adding thiamine and folic acid supplements. -vitamin B12, folic acid both WNL -thiamine pending -ferritin, iron, and TIBC panel: 111, 45, 292% respectively (7) Essential hypertension: Code(s): I10 - Essential (primary) hypertension Status: Chronic Assessment and Plan: -continue home medications: Losartan and carvediol DS: Summary Hospital Course Hospital Course: Patient is an 82 YO Male admitted for SOB with PMH of interstitial lung disease, persistent atrial fibrillation, basal cell carcinoma (L nose s/p excision), HTN, hypothyroidism, ARELI, CABGx3, prostate cancer s/p prostatectomy, lymphoma s/p chemo, pericarditis, and AAA x2 with stent and a graft. On admission, reported sinus congestion, sneezing, and experiencing a productive cough for the past week. Has been slowly increasing in severity and increasing SOB. Has mild intermittent SOB at baseline secondary to ILD. Did not trial his home inhalers before seeking treatment. Denied chest pain, palpitations, or abdominal pain. No N/V/D. No increased swelling to his legs or abdomen. No fever, chills, or body aches. ED workup showed mild anemia at 11.6 (no previous hx), no leukocytosis, neutrophils modestly elevated, creatinine 1.5, troponin 0.036, BNP 4000. CXR showed left medial and bibasilar atelectasis/consolidation. Mild interstitial edema. Cardiomegaly. Subsequently found to be RSV+.
--- NOTE | 2023-06-24 16:41 | HOMEO2EVAL ---
Evaluation was performed at [facility] Home Oxygen Evaluation RC: Home Oxygen (O2) Evaluation Start: 06/24/23 11:14 Freq: ONCE Status: Active Protocol: RPE Activity Type Activity Date Activity User E-sign Co-sign Detail Recorded Client Recorded Date Recorded By Document 06/24/23 16:00 TOÑA [email or web address] 06/24/23 16:41 TOÑA Document 06/24/23 16:02 TOÑA [email or web address] 06/24/23 16:41 TOÑA Document 06/24/23 16:03 TOÑA [email or web address] 06/24/23 16:41 TOÑA Document 06/24/23 16:15 TOÑA [email or web address] 06/24/23 16:41 TOÑA 06/24/23 06/24/23 06/24/23 16:00 16:02 16:03 Home O2 Evaluation [Oxygen] -Test Phase Resting Exercise Exercise -Oxygen Delivery Nasal Cannula Nasal Cannula Nasal Cannula -Oxygen Flow Rate (L/min) 1 1 2 [Pulse Oximetry] -Pulse Oximetry (90-100 %) 93 88 L 92 [Pulse Rate] -Pulse Rate (60-100 beats/min) 72 88 90 [Comments] -Home Oxygen Evaluation Comments PT REQUIRES 1 L AT REST AND 2 L WITH ACTIVITY NO CHANGE FROM CURRENT HOME O2 SETTINGS [Charges] -Evaluation Charges O2 Evaluation by Pulmonary 06/24/23 16:15 Home O2 Evaluation [Oxygen] -Test Phase Resting -Oxygen Delivery Nasal Cannula -Oxygen Flow Rate (L/min) 1 [Pulse Oximetry] -Pulse Oximetry (90-100 %) 94 [Pulse Rate] -Pulse Rate (60-100 beats/min) 76 [Comments] -Home Oxygen Evaluation Comments [Charges] -Evaluation Charges
[2023-06-24] MEDS: ATORVASTATIN 40 MG TABLET 80 MG PO (16:43)
--- NOTE | 2023-06-24 16:43 | PCRCNOTE ---
Home O2 eval done, no change from current home o2 settings, 1L rest, 2L activity, 2L bleed in with CPAP
[2023-06-24] MEDS: ASPIRIN 81 MG ENTERIC TABLET PO (16:44)
[2023-06-24] MEDS: WARFARIN (*PBKC) 2.5 MG TABLET PO (16:54)
== END 2023-06-24 18:00 | disposition home or self-care (01) | DRG 194 ==
LOC: ANHED 18:26 → ANH2MED 19:25
PROVIDERS: Student in an Organized Health Care Education/Training Program; Admitting Provider Internal Medicine; Emergency Provider Emergency Medicine; PCP Internal Medicine; Visit Provider Nurse Practitioner
DX: J12.1 Respiratory syncytial virus pneumonia (principal); I48.19 Other persistent atrial fibrillation; J21.0 Acute bronchiolitis due to respiratory syncytial virus; I10 Essential (primary) hypertension; I71.40 Abdominal aortic aneurysm, without rupture, unspecified; R09.02 Hypoxemia; E03.9 Hypothyroidism, unspecified; G47.33 Obstructive sleep apnea (adult) (pediatric); Z79.01 Long term (current) use of anticoagulants; Z87.891 Personal history of nicotine dependence; Z95.1 Presence of aortocoronary bypass graft; Z85.46 Personal history of malignant neoplasm of prostate; Z85.72 Personal history of non-Hodgkin lymphomas; Z95.820 Peripheral vascular angioplasty status with implants and grafts; Z79.82 Long term (current) use of aspirin
CPT/HCPCS: 36415; 36600; 71045; 71250; 74150; 80048; 80053; 82607; 82728; 82746; 82805; 83540; 83550; 83605; 83735; 83880; 84145; 84425; 84443; 84484; 85025; 85610; 87070; 87205; 87637; 93005; 94618; 94640; 99285; A9270; C8929; J0456; J0696; J1940; J7512; Q9957

== ENCOUNTER 2023-08-26 11:52 | Outpatient (CLI) | payer MEDICARE, SELFPAY ==
[2023-08-26 12:49] LABS: Influenza A QL RT-PCR Negative (Negative); Influenza B QL RT-PCR Negative (Negative); RSV RNA, RT-PCR Negative (Negative); SARS-CoV-2 RNA PCR Negative (Negative)
== END 2023-08-26 11:53 | disposition home or self-care (01) ==
LOC: ANHLAB 11:57
PROVIDERS: PCP Internal Medicine; Visit Provider Physician Assistant
DX: R06.02 Shortness of breath (principal); Z20.822 Contact with and (suspected) exposure to COVID-19
CPT/HCPCS: 87637